=== PATIENT | male | born 1975 | race Caucasian/White ===

== ENCOUNTER 2016-06-13 12:37 | Emergency (ER) | payer BC ==
[2016-06-13 12:58] VITALS: BP 138/83; PULSE 73; TEMP 98.6; BMI 20.3
--- NOTE | 2016-06-13 13:08 | PDOC ---
History of Present Illness - General Chief Complaint: Injury Stated Complaint: LEFT ANKLE PAIN Time Seen by Provider: 06/13/16 12:41 - History of Present Illness Initial Comments: 06/13/16 13:28 06/13/16 13:20 Chief complaint: Pain and swelling left ankle History of present illness: 2 days ago the patient stepped in a hole, inverting his left ankle. There is persistent pain and swelling, mostly on the outside of the ankle. The patient is ambulating but is limping mildly Review of systems: Denies distal numbness tingling pain or weakness of the foot. Denies any other injuries including injuries to the head neck chest abdomen spine and pelvis or other extremities Past medical history: Healthy male, no active medical problems, prior sprain in the distant past but no fracture Social/family history reviewed and noncontributory Physical exam: Alert oriented well-developed well-nourished no acute distress cheerful and cooperative Afebrile, vital signs normal Left ankle examination reveals moderate swelling of the anterior lateral ankle ligaments, no point tenderness of the malleoli, no fifth metatarsal tenderness, full pulses, no distal sensory or motor deficits. Impression: Sprain versus fracture Plan: X-ray and further orthopedic management depending on results Past History - Past Medical History Allergies/Adverse Reactions: Allergies Allergy/AdvReac Type Severity Reaction Status Date / Time No Known Allergies Allergy Verified 06/13/16 12:38 Home Medications: Ambulatory Orders NK [No Known Home Medication] 06/13/16 Other medical history: DENIES - Psycho/Social/Smoking Cessation Hx Anxiety: No Suicidal Ideation: No Smoking History: Never smoked Have you smoked in the past 12 months: No Information on smoking cessation initiated: No Hx Alcohol Use: No Drug/Substance Use Hx: No Substance Use Type: None *Physical Exam - Vital Signs Last Vital Signs Temp Pulse Resp BP Pulse Ox 98.6 F 73 20 138/83 100 06/13/16 12:38 06/13/16 12:38 06/13/16 12:38 06/13/16 12:38 06/13/16 12:38 Medical Decision Making - Medical Decision Making 06/13/16 14:02 X-ray shows soft tissue swelling, moderate, no fracture Aircast applied. No distal numbness tingling pain or weakness after application. Pulses full. No sensory deficit. Patient ambulating well. Advised ice, ibuprofen, maintain moderate ambulation and weightbearing, but no prolonged standing or sports. Follow up with orthopedist if pain and swelling persist one week. *DC/Admit/Observation/Transfer Diagnosis at time of Disposition: Ankle sprain Qualifiers: Encounter type: initial encounter Involved ligament of ankle: tibiofibular ligament Laterality: left Qualified Code(s): S93.432A - Sprain of tibiofibular ligament of left ankle, initial encounter - Discharge Dispostion Disposition: HOME Condition at time of disposition: Improved Admit: No - Referrals Referrals: Pierce Davey MD [Staff Physician] - 1 week - Patient Instructions Printed Discharge Instructions: DI for Ankle Sprain
== END 2016-06-13 14:14 | disposition home or self-care (01) ==
LOC: FER 12:37
DX: S93.432A Sprain of tibiofibular ligament of left ankle, initial encounter (principal); X58.XXXA Exposure to other specified factors, initial encounter; Y93.89 Activity, other specified; Y92.410 Unspecified street and highway as the place of occurrence of the external cause
CPT/HCPCS: 73610-TC-LT; 99282-25

== ENCOUNTER 2018-02-12 13:18 | Emergency (ER) | payer BC ==
--- NOTE | 2018-02-12 13:25 | PDOC ---
History of Present Illness - General Chief Complaint: Rash Stated Complaint: rash on right leg Time Seen by Provider: 02/12/18 13:25 History Source: Patient - History of Present Illness Initial Comments: 02/12/18 14:03 43 year old male with no significant PMH presents with a 1 week h/o rash. Rash is on his RLE. He first noticed the rash 1 week previous on his ankle, subsequently the rash spread to his knee and most recently his thigh prompting his visit to the ED today. Has not tried any OTC medications/creams. Denies associated fevers/chills. 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 Last week he was trimming a tree branch and noted that the branch touched his RLE. Patient was wearing thermal underwear and sweatpants and denies any direct contact with the tree. Notes one of his 14 roommates may have had some "problem" in his bedroom and is unable to provide further details. Patient further denies nausea/vomiting, diarrhea/constipation, dysuria/hematuria , chest pain, shortness of breath. NKDA Surgical: none Social: denies toxic habits PMD: can't recall name, in [place] As per EMR, patient last evaluated in our ED in 2017 for L ankle pain following injury. X-ray negative and patient discharged home with supportive care. Past History - Past Medical History Allergies/Adverse Reactions: Allergies Allergy/AdvReac Type Severity Reaction Status Date / Time No Known Allergies Allergy Verified 02/12/18 13:19 Home Medications: Ambulatory Orders NK [No Known Home Medication] 06/13/16 COPD: No Other medical history: denies - Suicide/Smoking/Psychosocial Hx Smoking History: Never smoked Have you smoked in the past 12 months: No Hx Alcohol Use: No Drug/Substance Use Hx: No Substance Use Type: None Review of Systems - Review of Systems Constitutional: No: Chills, Fever HEENTM: No: Blurred Vision, Double Vision, Hearing Loss, Throat Pain Respiratory: No: Cough, Shortness of Breath Cardiac (ROS): No: Chest Pain, Lightheadedness, Palpitations, Syncope ABD/GI: No: Constipated, Diarrhea, Nausea, Vomiting : No: Burning, Dysuria Integumentary: Yes: Rash Neurological: No: Headache, Numbness, Tingling, Tremors, Unsteady Gait, Dizziness *Physical Exam - Vital Signs Last Vital Signs Temp Pulse Resp BP Pulse Ox 0/0 L 02/12/18 13:19 - Physical Exam General Appearance: Yes: Nourished, Appropriately Dressed HEENT: positive: Normal Voice, Hearing Grossly Normal, Other (no oral lesions) Neck: positive: Trachea midline, Supple Respiratory/Chest: positive: Lungs Clear, Normal Breath Sounds. negative: Crackles, Rales, Stridor, Wheezing Cardiovascular: positive: Regular Rhythm, Regular Rate, S1, S2. negative: Edema , JVD, Murmur Vascular Pulses: Dorsalis-Pedis (R): 2+, Doralis-Pedis (L): 2+ Gastrointestinal/Abdominal: positive: Normal Bowel Sounds, Soft. negative: Distended, Guarding, Rebound, Tenderness Musculoskeletal: negative: CVA Tenderness (R), CVA Tenderness (L) Extremity: positive: Normal Capillary Refill, Other (Scattered, maculopapular grouped rash with surrounding erythema on RLE; some vesicular rash in R popliteal fossa; rash extends from ankle to R lower thigh) Integumentary: positive: Normal Color, Dry Neurologic: positive: Fully Oriented, Alert Moderate Sedation - Procedure Monitoring Vital Signs: Procedure Monitoring Vital Signs Temperature Pulse Rate Respiratory Rate Blood Pressure 0/0 L 02/12/18 13:19 O2 Sat by Pulse Oximetry (%) Medical Decision Making - Medical Decision Making 02/12/18 14:04 43 year old male presents with 1 week h/o rash. VS unremarkable. PE shows RLE maculopapular as well as some vesicular rash in clusters on RLE with erythema. Puritic, non-tender. Will give instruction for OTC Benadryl cream BID and return precautions including precautions for systemic signs of infection. Patient also given Tongan language decontamination instructions. I discussed the physical exam findings, ancillary test results and final diagnoses with the patient. I answered all of the patient's questions. The patient was satisfied with the care received and felt comfortable with the discharge plan and treatment plan. The patient will return to the Emergency Department with any new, persistent or worsening symptoms. *DC/Admit/Observation/Transfer Diagnosis at time of Disposition: Rash - Discharge Dispostion Disposition: HOME Condition at time of disposition: Stable Decision to Admit order: No - Referrals - Patient Instructions Printed Discharge Instructions: DI for Rash, How to Get Rid of Bed Bugs Additional Instructions: You were evaluated today for a rash on your leg. At this time, we believe the rash may be bed bugs. Please purchase Benadryl cream from a drugstore and apply to your rash daily. We have provided information about cleaning your home including your mattress, sheets and clothing. Your housemates may also need to decontaminate their bedrooms and belongings. If the rash continues to spread, becomes painful or severely itchy, or if you develop fevers/chills please return to the Emergency Department immediately for re-evaluation. Hoy te evaluaron por jana erupcin en . En jam momento, creemos que la erupcin puede ser chinches. Compre la crema de Benadryl en jana farmacia y aplquela diariamente a shah erupcin. Hemos proporcionado informacin sobre la limpieza de shah hogar, incluidos shah colchn, sbanas y ropa. Blessing compaeros de casa tambin pueden necesitar descontaminar blessing dormitorios y pertenencias. Si el sarpullido contina propagndose, se vuelve doloroso o con picazn severa , o si desarrolla fiebre o escalofros, regrese al Departamento de Emergencias inmediatamente para jana nueva evaluacin. Print Language: BENINESE - Post Discharge Activity
[2018-02-12 13:35] VITALS: BMI 21.6
[2018-02-12 13:41] VITALS: BP 127/93; PULSE 85; TEMP 98.2
== END 2018-02-12 14:18 | disposition home or self-care (01) ==
LOC: FER 13:18
DX: R21 Rash and other nonspecific skin eruption (principal)
CPT/HCPCS: 99281-25